=== PATIENT | female | born 1995 | race Caucasian/White ===

== ENCOUNTER 2016-08-23 18:16 | Emergency (ER) ==
[2016-08-23 18:22] VITALS: BP 117/82; TEMP 98.4; BMI 27.3
[2016-08-23] MEDS ORDERED: TORADOL IM STA (18:31)
--- NOTE | 2016-08-23 18:35 | ED.PDOC ---
General ED Provider: Dr. PRIYANKA SERRANO Chief Complaint: Hand Pain/Injury Stated Complaint: Patient puched the wall yesterday, she is hurting on 5 th finger today. hurt to move and bend Time Seen by Physician: 18:32 Mode of Arrival: Walk-In Information Source: Patient Nursing and Triage Documentation Reviewed and Agree: Yes Musculoskeletal Complaint Exam - Hand/Wrist Complaint/Exam Location of Pain: Reports: Right, Digit #5 Mechanism of Injury: Reports: Trauma Symptoms Are: Still present Onset of Pain: Reports: Immediate Initial Severity: Moderate Current Severity: Moderate Location: Reports: Discrete Character: Reports: Aching, Throbbing Alleviating: Reports: None Aggravating: Reports: Movement Associated Signs and Symptoms: Reports: Swelling. Denies: Redness, Bruising, Fever, Weakness, Numbness, Tingling Dominant Hand: Right Related Surgical History: Reports: None Hand/Wrist Findings: Present: Swelling, Abnormal contour Tenderness: Present: Metacarpal Differential Diagnoses: Closed Fracture, Sprain Review of Systems - Review Of Systems Constitutional: Reports: No symptoms Eyes: Reports: No symptoms Ears, Nose, Mouth, Throat: Reports: No symptoms Respiratory: Reports: No symptoms Cardiac: Reports: No symptoms GI: Reports: No symptoms : Reports: No symptoms Musculoskeletal: Reports: Joint pain Skin: Reports: No symptoms Neurological: Reports: No symptoms Endocrine: Reports: No symptoms Hematologic/Lymphatic: Reports: No symptoms All Other Systems: Reviewed and Negative Past Medical History - Past Medical History Previously Healthy: Yes Endocrine: Reports: None Cardiovascular: Reports: None Respiratory: Reports: Pneumonia Hematological: Reports: None Gastrointestinal: Reports: None Genitourinary: Reports: None Neuro/Psych: Reports: None Musculoskeletal: Reports: None Cancer: Reports: None Last Menstrual Period: 07/22/16 Other Pertinent Past Medical History: ovarian cyst - Surgical History General Surgical History: Reports: None - Family History Family History: Reports: Unknown - Social History Smoking Status: Current every day smoker Hx Substance Use: No Alcohol Screening: None - Immunizations Tetanus Shot up to Date: Yes Physical Exam - Physical Exam Appearance: Well-appearing, No pain distress, Well-nourished Pain Distress: Moderate Eyes: KIKI, EOMI, Conjunctiva clear ENT: Ears normal, Nose normal, Oropharynx normal Respiratory: Airway patent, Breath sounds clear, Breath sounds equal, Respirations nonlabored Cardiovascular: RRR, Pulses normal, No rub, No murmur GI/: Soft, Nontender, No masses, Bowel sounds normal, No Organomegaly Musculoskeletal: Normal strength, ROM intact, No edema, No calf tenderness Skin: Warm, Dry, Normal color Neurological: Sensation intact, Motor intact, Reflexes intact, Cranial nerves intact, Alert, Oriented Psychiatric: Affect appropriate, Mood appropriate Interpretation - Radiology Interpretation Radiology Interpretation By: ED Physician Radiology Results: Negative Critical Care Note - Critical Care Note Total Time (mins): 0 Course - Course Orders, Labs, Meds: Orders Category Date Time Status Ketorolac Tromethamine [Toradol] MEDS 08/23/16 18:31 Discontinued 30 mg IM ONCE STA HAND, RIGHT 3 VIEWS Stat RADS 08/23/16 18:31 Taken Medications Discontinued Medications Generic Name Dose Route Start Last Admin Trade Name Freq PRN Reason Stop Dose Admin Ketorolac Tromethamine 30 mg 08/23/16 18:31 08/23/16 18:39 Toradol IM 08/23/16 18:32 30 mg ONCE STA Administration Vital Signs: Temp Pulse Resp BP Pulse Ox 08/23/16 18:17 98.4 F 85 16 117/82 94 L Departure - Departure Time of Disposition: 18:53 Disposition: HOME SELF-CARE Discharge Problem: Sprain of right hand Qualifiers: Encounter type: initial encounter Qualifier Code: (S63.91XA) Sprain of unspecified part of right wrist and hand, initial encounter Instructions: Hand Sprain (ED) Condition: Stable Pt referred to PMD for follow-up: Yes Additional Instructions: F/u at [facility] in 3-4 days for further evaluation rest hot or cold pack Prescriptions: Hydrocodone/Acetaminophen [Loco 5-325 Tablet] 1 tab PO TID PRN #12 tablet PRN Reason: PAIN Allergies/Adverse Reactions: Allergies No Known Allergies Allergy (Verified 08/23/16 18:24) Home Medications: Ambulatory Orders Dextroamphetamine/Amphetamine [Adderall 20 mg Tablet] 20 mg PO DAILY 08/23/16 Hydrocodone/Acetaminophen [Loco 5-325 Tablet] 1 tab PO TID PRN #12 tablet 08/23 Disposition Discussed With: Patient
--- NOTE | 2016-08-23 21:10 | DI ---
EXAM: Right hand three-view HISTORY: Injury and pain at fifth metacarpal COMPARISON: None FINDINGS: The bones are normal. The joints are normal. No focal soft tissue abnormality. IMPERSSION: Normal examination.
== END 2016-08-23 19:05 | disposition home or self-care (01) ==
LOC: ED 18:16
DX: S63.91XA Sprain of unspecified part of right wrist and hand, initial encounter (principal); W22.8XXA Striking against or struck by other objects, initial encounter; F17.210 Nicotine dependence, cigarettes, uncomplicated
CPT/HCPCS: 96372; 99282

== ENCOUNTER 2017-02-15 23:04 | Emergency (ER) ==
[2017-02-15 23:16] VITALS: BP 136/91; TEMP 99.2; BMI 25.3
[2017-02-15] MEDS ORDERED: SODIUM CHLORIDE 1,000 ML IV STA (23:20)
[2017-02-15] MEDS ORDERED: XOPENEX 0.63 MG NEB STA (23:21)
[2017-02-15 23:54] LABS: BASOPHILS % (AUTO) 0.4 % (0.0-3.0); EOSINOPHILS # (AUTO) 0.1 K/ul (0.0-0.7); HEMATOCRIT 39.1 % (37.0-47.0); HEMOGLOBIN 13.9 g/dl (12.0-16.0); IMMATURE GRANULOCYTE % (AUTO) 0.3 % (0.0-5.0); LYMPHOCYTES # (AUTO) 4.1 K/uL (0.60-3.4); LYMPHOCYTES % (AUTO) 51.4 (10.0-50.0); MEAN CORPUSCULAR HEMOGLOBIN 31.2 pg (27.0-31.0); MEAN CORPUSCULAR HGB CONC 35.5 (31.8-35.4); MEAN CORPUSCULAR VOLUME 87.9 fl (81.0-99.0); MONOCYTES # (AUTO) 0.6 K/uL (0.4-2.0); NEUTROPHILS # (AUTO) 3.2 K/ul (2.0-6.9); NEUTROPHILS % (AUTO) 39.9; PLATELET COUNT 229 10^3/uL (140-440); RED BLOOD COUNT 4.45 10^6/ul (4.20-5.40)
[2017-02-15 23:55] LABS: ABG BASE EXCESS -2 (-2.0-2.0); ABG HCO3 20.8 (22.0-26.0); ABG PCO2 24.7 mmHg (35-45); ABG PH 7.535 (7.35-7.45); ABG TCO2 22 (22.0-28.0)
[2017-02-16 00:15] LABS: SERUM PREGNANCY INTERNAL QC INTERNAL QC VALID
[2017-02-16 00:22] LABS: ALANINE AMINOTRANSFERASE 8 U/L (12-78); ALBUMIN 3.9 g/dL (3.4-5.0); ALBUMIN/GLOBULIN RATIO 1.34; ALKALINE PHOSPHATASE 50 U/L (42-98); ASPARTATE AMINO TRANSFERASE 12 U/L (15-37); BILIRUBIN,TOTAL 0.54 mg/dL (0.00-1.20); BLOOD UREA NITROGEN 7 mg/dL (7-18); BUN/CREATININE RATIO 8.86; CALCIUM 9.4 mg/dL (8.2-10.2); CARBON DIOXIDE 23 mmol/L (21-32); CHLORIDE 109 mmol/L (98-107); CREATINE KINASE 72 U/L; CREATININE 0.79 mg/dL (0.60-1.30); GLUCOSE 105 mg/dL (70-110); SODIUM 142 mmol/L (136-145); TOTAL PROTEIN 6.8 g/dL (6.4-8.2)
[2017-02-16 00:33] LABS: ERYTHROCYTE SEDIMENTATION RATE 2 mm/hr (0-20); ESR INTERNAL QC INTERNAL QC VALID
--- NOTE | 2017-02-16 01:05 | CT ---
EXAM: CT angiogram chest with intravenous contrast 02/16/2017. Multi planar reformatted images obta ined. MIP images provided HISTORY: Dyspnea COMPARISON: 12/19/2015 FINDINGS: The heart size appears within normal limits. There is no pericardial effusion. The thoracic aorta shows no acute process. There are no pulmonary arterial filling defects to suggest pulmonary embolus. There is no pulmonary consolidation. No pleural effusion or pneumothorax. Scattered benign postinflammatory calcifications. Limited views of the upper abdomen show no acute process. No acute osseous abnormality. IMPRESSION: 1. No evidence pulmonary embolus. 2. No acute cardiopulmonary process.
[2017-02-16] MEDS: K-DUR PO STA ×2 (01:14→01:21)
[2017-02-16] MEDS ORDERED: POTASSIUM CHLORIDE 20 MEQ VIAL-ADDITIVE ONLY 20 MEQ in SODIUM CHLORIDE 100 ML IV STA ×2 (01:19→01:20)
[2017-02-16 01:28] LABS: ADD URINE MICROSCOPIC YES; BILIRUBIN,URINE Negative (NEGATIVE); KETONES,URINE Negative (NEGATIVE); LEUKOCYTE ESTERASE ,URINE 1+ (NEGATIVE); NITRITE,URINE Negative (NEGATIVE); PH,URINE 8.5 (5-9); PROTEIN,URINE Negative (NEGATIVE); URINE, BLOOD Trace-lysed (NEGATIVE)
--- NOTE | 2017-02-16 01:28 | ED.PDOC ---
General ED Provider: Dr. TRI REAGAN-ER Chief Complaint: Non-specific Complaint Stated Complaint: im sob and weak Time Seen by Physician: 23:10 Mode of Arrival: Walk-In Information Source: Patient Exam Limitations: No limitations Nursing and Triage Documentation Reviewed and Agree: Yes Respiratory Complaint Exam - Shortness of Air Complaint/Exam Onset/Duration: one hour Symptoms Are: Still present Timing: Constant Initial Severity: Mild Current Severity: Mild Aggravating: Reports: None Alleviating: Reports: None Associated Signs and Symptoms: Denies: Cough, Wheezing, Chest pain with cough, Chest pain, Fever, Chills, Diaphoresis, Nasal congestion, Dizziness, Calf pain, Calf swelling, Edema, Rapid breathing, Labored breathing, Decreased intake History of Healthcare-Acquired Pneumonia: No Pulmonary Embolism Risk Factors: Reports: None Cardiac Risk Factors: Reports: None Tuberculosis Risk Factors: Reports: None Home Oxygen Use: No Recent Stress Test: No Recent Echo/LV Function: No Respiratory Distress: None Stridor Present: No Tracheal Deviation: No Subcutaneous Emphysema: No Accessory Muscle Use: No Retractions: Not Present Diminished Breath Sounds: No Prolonged Expiratory Phase: No Unable to Speak Full Sentences: No Fatigue: No Leg Swelling: No Sandi's Sign Present: No Grunting Respirations: No Kussmaul Respirations: No Differential Diagnoses: Asthma, Pulmonary Edema, Pneumonia, Pneumothorax, Pulmonary Embolism Quality Indicator For Non-Traumatic Chest Pain/Syncope: EKG Performed Review of Systems - Review Of Systems Constitutional: Reports: No symptoms, Weakness Eyes: Reports: No symptoms Ears, Nose, Mouth, Throat: Reports: No symptoms Respiratory: Reports: Short of air Cardiac: Reports: No symptoms GI: Reports: No symptoms : Reports: No symptoms Musculoskeletal: Reports: No symptoms Skin: Reports: No symptoms Neurological: Reports: No symptoms Endocrine: Reports: No symptoms Hematologic/Lymphatic: Reports: No symptoms All Other Systems: Reviewed and Negative Past Medical History - Past Medical History Previously Healthy: Yes Endocrine: Reports: None Cardiovascular: Reports: None Respiratory: Reports: Pneumonia Hematological: Reports: None Gastrointestinal: Reports: None Genitourinary: Reports: None Neuro/Psych: Reports: None Musculoskeletal: Reports: None Cancer: Reports: None Last Menstrual Period: 3 days ago Other Pertinent Past Medical History: ovarian cyst - Surgical History General Surgical History: Reports: None - Family History Family History: Reports: Unknown - Social History Smoking Status: Current every day smoker Hx Substance Use: No Alcohol Screening: None Lives: With family - Immunizations Tetanus Shot up to Date: Yes Physical Exam - Physical Exam Appearance: Well-appearing, No pain distress, Well-nourished Eyes: KIKI, EOMI, Conjunctiva clear ENT: Ears normal Neck: Supple Respiratory: Airway patent, Breath sounds clear, Breath sounds equal, Respirations nonlabored Cardiovascular: RRR, Pulses normal, No rub, No murmur GI/: Soft Musculoskeletal: Normal strength, ROM intact, No edema, No calf tenderness Skin: Warm Neurological: Sensation intact Psychiatric: Affect appropriate, Mood appropriate, Anxious Interpretation - Radiology Interpretation Radiology Interpretation By: Radiologist Radiology Results: Negative Exam Interpreted: CT Scan - EKG Interpretation Time of EKG #1: 01:28 Rate: Normal Rhythm: Sinus Ectopy: None [place]: NL ST Segment: Normal Re-Evaluation - Re-Evaluation Time of Re-Evaluation: 03:54 Status: Improved Vital Signs Stable: Yes Pain Level: 0 Appearance: NAD Lungs: Clear Skin: Warm and Dry Neuro: Alert and Oriented X3 CV: RRR Critical Care Note - Critical Care Note Total Time (mins): 0 Course - Course Hematology/Chemistry: 02/15/17 23:34 02/16/17 03:30 Orders, Labs, Meds: Lab Review 02/15/17 02/15/17 02/15/17 23:19 23:34 23:34 WBC 7.90 RBC 4.45 Hgb 13.9 Hct 39.1 MCV 87.9 MCH 31.2 H MCHC 35.5 H RDW Coeff of Garth 13.1 Plt Count 229 Immature Gran % (Auto) 0.3 Neut % (Auto) 39.9 Lymph % (Auto) 51.4 H [place] % (Auto) 7.0 Eos % (Auto) 1.0 Baso % (Auto) 0.4 Immature Gran # (Auto) 0.0 Neut # 3.2 Lymph # 4.1 H [place] # 0.6 Eos # 0.1 Baso # 0.0 ESR 2 Puncture Site Rb O2 Saturation 98.0 ABG pH 7.535 H* ABG pCO2 24.7 L ABG pO2 98.0 ABG HCO3 20.8 L ABG Total CO2 22 ABG Base Excess -2 Iglesia Test + FiO2 % 21.0 Sodium 142 Potassium 3.0 L Chloride 109 H Carbon Dioxide 23 Anion Gap 13.0 BUN 7 Creatinine 0.79 Estimated GFR (MDRD) 93.00 BUN/Creatinine Ratio 8.86 Glucose 105 Calcium 9.4 Total Bilirubin 0.54 AST 12 L ALT 8 L Alkaline Phosphatase 50 Total Creatine Kinase 72 Troponin I < 0.0100 B-Natriuretic Peptide Total Protein 6.8 Albumin 3.9 Globulin 2.9 Albumin/Globulin Ratio 1.34 Serum , Qual Urine Color Urine Clarity Urine pH Ur Specific [place] Urine Protein Urine Glucose (UA) Urine Ketones Urine Blood Urine Nitrite Urine Bilirubin Urine Urobilinogen Ur Leukocyte Esterase Urine Microscopic WBC Ur Squamous Epith Cells Urine Bacteria Urine Opiates Screen Ur Oxycodone Screen Urine Methadone Screen Ur Propoxyphene Screen Ur Barbiturates Screen U Tricyclic Antidepress Ur Phencyclidine Scrn Ur Amphetamine Screen U Methamphetamines Scrn U Benzodiazepines Scrn Urine Cocaine Screen U Cannabinoids Screen 02/15/17 02/15/17 02/16/17 23:34 23:34 00:50 WBC RBC Hgb Hct MCV MCH MCHC RDW Coeff of Garth Plt Count Immature Gran % (Auto) Neut % (Auto) Lymph % (Auto) [place] % (Auto) Eos % (Auto) Baso % (Auto) Immature Gran # (Auto) Neut # Lymph # [place] # Eos # Baso # ESR Puncture Site O2 Saturation ABG pH ABG pCO2 ABG pO2 ABG HCO3 ABG Total CO2 ABG Base Excess Ig[place]ia Test FiO2 % Sodium Potassium Chloride Carbon Dioxide Anion Gap BUN Creatinine Estimated GFR (MDRD) BUN/Creatinine Ratio Glucose Calcium Total Bilirubin AST ALT Alkaline Phosphatase Total Creatine Kinase Troponin I B-Natriuretic Peptide 13 Total Protein Albumin Globulin Albumin/Globulin Ratio Serum , Qual Negative Urine Color Urine Clarity Urine pH Ur Specific [place] Urine Protein Urine Glucose (UA) Urine Ketones Urine Blood Urine Nitrite Urine Bilirubin Urine Urobilinogen Ur Leukocyte Esterase Urine Microscopic WBC Ur Squamous Epith Cells Urine Bacteria Urine Opiates Screen Negative Ur Oxycodone Screen Negative Urine Methadone Screen Negative Ur Propoxyphene Screen Negative Ur Barbiturates Screen Negative U Tricyclic Antidepress Positive Ur Phencyclidine Scrn Negative Ur Amphetamine Screen Positive U Methamphetamines Scrn Negative U Benzodiazepines Scrn Negative Urine Cocaine Screen Negative U Cannabinoids Screen Negative 02/16/17 02/16/17 00:50 03:30 WBC RBC Hgb Hct MCV MCH MCHC RDW Coeff of Garth Plt Count Immature Gran % (Auto) Neut % (Auto) Lymph % (Auto) [place] % (Auto) Eos % (Auto) Baso % (Auto) Immature Gran # (Auto) Neut # Lymph # [place] # Eos # Baso # ESR Puncture Site O2 Saturation ABG pH ABG pCO2 ABG pO2 ABG HCO3 ABG Total CO2 ABG Base Excess Iglesia Test FiO2 % Sodium Potassium 3.5 Chloride Carbon Dioxide Anion Gap BUN Creatinine Estimated GFR (MDRD) BUN/Creatinine Ratio Glucose Calcium Total Bilirubin AST ALT Alkaline Phosphatase Total Creatine Kinase Troponin I B-Natriuretic Peptide Total Protein Albumin Globulin Albumin/Globulin Ratio Serum , Qual Urine Color Light Urine Clarity Slightly Urine pH 8.5 Ur Specific [place] 1.015 Urine Protein Negative Urine Glucose (UA) Negative Urine Ketones Negative Urine Blood Trace-lysed Urine Nitrite Negative Urine Bilirubin Negative Urine Urobilinogen 0.2 Ur Leukocyte Esterase 1+ Urine Microscopic WBC 10-20 Ur Squamous Epith Cells 20-30 Urine Bacteria 1+ Urine Opiates Screen Ur Oxycodone Screen Urine Methadone Screen Ur Propoxyphene Screen Ur Barbiturates Screen U Tricyclic Antidepress Ur Phencyclidine Scrn Ur Amphetamine Screen U Methamphetamines Scrn U Benzodiazepines Scrn Urine Cocaine Screen U Cannabinoids Screen Orders Category Date Time Status ABG DRAW REQUEST Stat CARDIO 02/15/17 23:19 Completed EKG-(ED ONLY) Stat CARDIO 02/15/17 23:19 Completed NEBULIZER TREATMENT Stat CARDIO 02/15/17 23:21 Completed NPO REMINDER: IMAGING ONCE CARE 02/15/17 23:20 Completed Property Utilization Manager [ED WIPER BLENDER APPLIED] .ONCE EMERGENCY 02/15/17 23:25 Active IV [ED IV/MEDIPORT/POWERPORT] .ONCE EMERGENCY 02/15/17 23:19 Active ABG Stat LAB 02/15/17 23:19 Completed BNP [B-TYPE NATRIURETIC PEPTIDE] Stat LAB 02/15/17 23:34 Completed CBC W/ AUTO DIFF Stat LAB 02/15/17 23:34 Completed COMPREHENSIVE METABOLIC PANEL Stat LAB 02/15/17 23:34 Completed CREATINE KINASE Stat LAB 02/15/17 23:34 Completed ESR Stat LAB 02/15/17 23:34 Completed POTASSIUM Stat LAB 02/16/17 03:30 Completed SERUM Stat LAB 02/15/17 23:34 Completed TROPONIN I Stat LAB 02/15/17 23:34 Completed URINALYSIS C & S IF INDICATED Stat LAB 02/15/17 23:19 Completed URINE CULTURE Stat LAB 02/16/17 01:35 Received URINE DRUG SCREEN (RAPID FOR ED) [DRUG SCREEN, URINE, LAB 02/15/17 23:21 Completed RAPID] Stat 0.9 % Sodium Chloride [Saline Flush] MEDS 02/15/17 23:19 Ordered 1 syr IVF PRN PRN Levalbuterol HCl [Xopenex 0.63 mg] MEDS 02/15/17 23:21 Discontinued 1 vial NEB ONCE STA Morphine Sulfate [Morphine 2 mg/ml Syringe] MEDS 02/16/17 01:35 Discontinued 2 mg IVP NOW STA Ondansetron HCl/Pf [Zofran 4 mg/2 ml] MEDS 02/16/17 01:35 Discontinued 4 mg IVP ONCE STA Potassium Chloride Additive [Potassium Chloride 20 Meq MEDS 02/16/17 01:44 Discontinued Vial-Additive Only] 20 meq IV .STK-MED ONE Potassium Chloride Additive [Potassium Chloride 20 Meq MEDS 02/16/17 01:19 Discontinued Vial-Additive Only] 20 meq 0.9 % Sodium Chloride [Sodium Chloride] 100 ml IV ONCE Potassium Chloride Additive [Potassium Chloride 20 Meq MEDS 02/16/17 01:20 Discontinued Vial-Additive Only] 20 meq 0.9 % Sodium Chloride [Sodium Chloride] 100 ml IV ONCE Potassium Chloride [K-Dur] MEDS 02/16/17 01:09 Discontinued 40 meq PO ONCE STA Potassium Chloride [K-Dur] MEDS 02/16/17 02:09 Discontinued 40 meq PO ONCE STA Sodium Chloride 0.9% [Sodium Chloride] 1,000 ml MEDS 02/15/17 23:20 Active IV 100 mls/hr CT CHEST PE PROTOCOL Stat RADS 02/16/17 00:27 Completed Medications Generic Name Dose Route Start Last Admin Trade Name Freq PRN Reason Stop Dose Admin Sodium Chloride 1,000 mls @ 100 mls/hr 02/15/17 23:20 02/16/17 00:18 Sodium Chloride IV 02/16/17 09:19 100 mls/hr .Q10H STA Administration Sodium Chloride 1 syr 02/15/17 23:19 02/16/17 00:18 Saline Flush IVF 1 syr PRN PRN Administration To flush IV Discontinued Medications Generic Name Dose Route Start Last Admin Trade Name Freq PRN Reason Stop Dose Admin Potassium Chloride 20 meq/ 110 mls @ 50 mls/hr 02/16/17 01:19 02/16/17 03:51 Sodium Chloride IV 02/16/17 03:30 Not Given ONCE STA Potassium Chloride 20 meq/ 110 mls @ 50 mls/hr 02/16/17 01:20 02/16/17 03:51 Sodium Chloride IV 02/16/17 03:31 Not Given ONCE STA Levalbuterol HCl 1 vial 02/15/17 23:21 02/15/17 23:52 Xopenex 0.63 Mg NEB 02/15/17 23:22 1 vial ONCE STA Administration Morphine Sulfate 2 mg 02/16/17 01:35 02/16/17 02:10 Morphine 2 Mg/Ml Syringe IVP 02/16/17 01:36 2 mg NOW STA Administration Ondansetron HCl 4 mg 02/16/17 01:35 02/16/17 02:11 Zofran 4 Mg/2 Ml IVP 02/16/17 01:36 4 mg ONCE STA Administration Potassium Chloride 40 meq 02/16/17 01:09 02/16/17 01:21 K-Dur PO 02/16/17 01:10 Not Given ONCE STA Potassium Chloride 40 meq 02/16/17 02:09 02/16/17 02:20 K-Dur PO 02/16/17 02:10 40 meq ONCE STA Administration Vital Signs: Temp Pulse Resp BP Pulse Ox 02/15/17 23:05 99.2 F 88 20 136/91 H 100 Departure - Departure Time of Disposition: 03:54 Disposition: HOME SELF-CARE Discharge Problem: Hypokalemia Instructions: Hypokalemia (ED) Condition: Good Pt referred to PMD for follow-up: Yes Additional Instructions: recheck potassium with your pcp[ this week Allergies/Adverse Reactions: Allergies No Known Allergies Allergy (Verified 02/15/17 23:13) Home Medications: Ambulatory Orders Dextroamphetamine/Amphetamine [Adderall 20 mg Tablet] 20 mg PO DAILY 08/23/16 Disposition Discussed With: Patient, Family
[2017-02-16 01:31] LABS: BACTERIA,URINE 1+ (NOT PRESENT)
[2017-02-16] MEDS ORDERED: MORPHINE 2 MG/ML SYRINGE IVP STA (01:35)
[2017-02-16] MEDS ORDERED: ZOFRAN 4 MG/2 ML IVP STA (01:35)
[2017-02-16 01:37] LABS: COCAIN SCREEN,URINE NEGATIVE (NEGATIVE)
[2017-02-16] MEDS ORDERED: POTASSIUM CHLORIDE 20 MEQ VIAL-ADDITIVE ONLY IV ONE (01:44)
[2017-02-16] MEDS ORDERED: K-DUR PO STA (02:09)
== END 2017-02-16 04:00 | disposition home or self-care (01) ==
LOC: ED 23:04
DX: E87.6 Hypokalemia (principal); R06.02 Shortness of breath; R53.1 Weakness; F17.210 Nicotine dependence, cigarettes, uncomplicated
CPT/HCPCS: 36415; 80053; 80306; 81001; 82550; 82803; 83880; 84132; 84484; 84703; 85025; 85651; 87086; 93005; 93010; 94640; 96361; 96374; 96375; 99283

== ENCOUNTER 2017-02-19 16:45 | Outpatient (CLI) ==
--- NOTE | 2017-02-20 05:59 | CT ---
EXAM: CT chest without contrast HISTORY: Chest pain COMPARISON: CT PE study 02/16/[address] chest 12/19/2015 TECHNIQUE: Serial axial images of the chest were obtained from the lung apices to the upper abdomen without contrast. These were viewed in multiple planes. FINDINGS: The thyroid is normal. The visualized vessels are unremarkable without aneurysm or stenos is. The heart is normal in size without pericardial effusion. There are no pathologically enlarged mediastinal or hilar lymph nodes. Mediastinal and hilar calcified lymph nodes are present. There is no axillary lymphadenopathy. There is no pneumothorax or pleural effusion. Right upper lobe calcified granuloma is unchanged. Th ere is no consolidation, nodule or mass. The airways are patent. The osseous structures are normal. Limited views in the upper abdomen are unchanged with prior cholecystectomy. IMPRESSION: 1. No acute cardiopulmonary process or consolidation. There has been no significant interval change . 2. Sequela of old granulomatous disease.
== END 2017-02-19 16:46 | disposition home or self-care (01) ==
LOC: RAD 16:45
PROVIDERS: ATTEND Emergency Medicine
DX: R07.9 Chest pain, unspecified (principal)

== ENCOUNTER 2017-03-04 13:29 | Outpatient (CLI) ==
[2017-03-04 14:05] LABS: SERUM PREGNANCY INTERNAL QC INTERNAL QC VALID
== END 2017-03-04 13:30 | disposition home or self-care (01) ==
LOC: LAB 13:29
PROVIDERS: ATTEND Nurse Practitioner Family
DX: N92.6 Irregular menstruation, unspecified (principal)
CPT/HCPCS: 36415; 84703

== ENCOUNTER 2018-06-06 19:40 | Emergency (ER) ==
[2018-06-06] MEDS ORDERED: MOTRIN PO STA (19:50)
[2018-06-06 19:51] VITALS: BP 153/86; TEMP 98.7; BMI 30.6
--- NOTE | 2018-06-06 20:06 | ED.PDOC ---
General ED Provider: Dr. DARREN PERDOMO Chief Complaint: Finger Pain/Injury Stated Complaint: one week history of left ring finger injury while trying to get toy box through door. sustained contusion and has been having difficulty flexing it. She splinted it but it still hurts. Time Seen by Physician: 19:45 Mode of Arrival: Walk-In Information Source: Patient Exam Limitations: No limitations Primary Care Provider: BEATRIS WYNN Nursing and Triage Documentation Reviewed and Agree: Yes Does patient meet sepsis criteria?: No System Inflammatory Response Syndrome: Not Applicable Sepsis Protocol: For patient's 13 years and over: Temp is 96.8 and below OR 101 and greater Pulse >90 BPM Resp >20/minute Acutely Altered Mental Status Are patient's symptoms suggestive of a new infection, such as: -Pneumonia -Skin, Soft Tissue -Endocarditis -UTI -Bone, Joint Infection -Implantable Device -Acute Abdominal Infection -Wound Infection -Meningitis -Blood Stream Catheter Infection -Unknown Review of Systems - Review Of Systems Constitutional: Reports: No symptoms Eyes: Reports: No symptoms Ears, Nose, Mouth, Throat: Reports: No symptoms Respiratory: Reports: No symptoms Cardiac: Reports: No symptoms GI: Reports: No symptoms : Reports: No symptoms Musculoskeletal: Reports: Joint pain (Left ring finger limited range of motion and contusion. ) Skin: Reports: No symptoms Neurological: Reports: Anxiety Endocrine: Reports: No symptoms Hematologic/Lymphatic: Reports: No symptoms All Other Systems: Reviewed and Negative Past Medical History - Past Medical History Previously Healthy: Yes Endocrine: Reports: None Cardiovascular: Reports: None Respiratory: Reports: Pneumonia Hematological: Reports: None Gastrointestinal: Reports: None Genitourinary: Reports: None Neuro/Psych: Reports: None Musculoskeletal: Reports: None Cancer: Reports: None Last Menstrual Period: depo shot Other Pertinent Past Medical History: ovarian cyst - Surgical History General Surgical History: Reports: None - Family History Family History: Reports: Unknown - Social History Smoking Status: Current every day smoker, Light tobacco smoker Hx Substance Use: No Alcohol Screening: None Physical Exam - Physical Exam Appearance: Well-appearing Ill-appearing: None Pain Distress: Severe Neck: Supple Respiratory: Airway patent, Breath sounds clear, Breath sounds equal, Respirations nonlabored Cardiovascular: RRR, Pulses normal, No rub, No murmur Musculoskeletal: Limited ROM Neurological: Alert, Oriented Psychiatric: Anxious Critical Care Note - Critical Care Note Total Time (mins): 0 Course - Course Orders, Labs, Meds: Orders Category Date Time Status Ibuprofen [Motrin] MEDS 06/06/18 19:50 Discontinued 800 mg PO ONCE STA FINGER(S), LEFT MIN 2V Stat RADS 06/06/18 19:51 Taken Medications Discontinued Medications Generic Name Dose Route Start Last Admin Trade Name Freq PRN Reason Stop Dose Admin Ibuprofen 800 mg 06/06/18 19:50 06/06/18 19:54 Motrin PO 06/06/18 19:51 800 mg ONCE STA Administration Vital Signs: Temp Pulse Resp BP Pulse Ox 06/06/18 19:42 98.7 F 89 18 153/86 H 100 Departure - Departure Time of Disposition: 20:09 Disposition: HOME SELF-CARE Discharge Problem: Pain in finger Instructions: Jammed Finger (ED) Condition: Stable Pt referred to PMD for follow-up: Yes IPMP verified?: Yes Additional Instructions: Take Motrin as needed for pain Follow up with PCP in 3 days Prescriptions: Ibuprofen [Motrin] 600 mg PO Q6H PRN #30 tablet PRN Reason: Analgesia Allergies/Adverse Reactions: Allergies No Known Allergies Allergy (Verified 06/06/18 19:55) Home Medications: Ambulatory Orders Dextroamphetamine/Amphetamine [Adderall 20 mg Tablet] 20 mg PO DAILY 08/23/16 Ibuprofen [Motrin] 600 mg PO Q6H PRN #30 tablet 06/06/18 Disposition Discussed With: Patient
--- NOTE | 2018-06-07 10:28 | DI ---
EXAM: The left finger fourth digit three-view HISTORY: Left ring finger injury COMPARISON: None FINDINGS: The bones are normal. The joints are normal. No focal soft tissue abnormality. IMPERSSION: Normal examination.
== END 2018-06-06 20:22 | disposition home or self-care (01) ==
LOC: ED 19:40
DX: S69.92XA Unspecified injury of left wrist, hand and finger(s), initial encounter (principal); W22.8XXA Striking against or struck by other objects, initial encounter; F17.210 Nicotine dependence, cigarettes, uncomplicated
CPT/HCPCS: 99282

== ENCOUNTER 2018-06-29 17:12 | Emergency (ER) ==
[2018-06-29 17:15] VITALS: BP 146/89; TEMP 98.1; BMI 30.5
--- NOTE | 2018-06-29 17:36 | ED.PDOC ---
General ED Provider: Dr. TRI VAUGHAN Chief Complaint: Sore Throat Stated Complaint: Sore Throat and heart burn. States started off feeling like heartburn and was nauseated, now has sore throat, productive cough with green phlegm Time Seen by Physician: 17:35 Mode of Arrival: Walk-In Information Source: Patient Exam Limitations: No limitations Primary Care Provider: BEATRIS WYNN Nursing and Triage Documentation Reviewed and Agree: Yes Does patient meet sepsis criteria?: No System Inflammatory Response Syndrome: Not Applicable Sepsis Protocol: For patient's 13 years and over: Temp is 96.8 and below OR 101 and greater Pulse >90 BPM Resp >20/minute Acutely Altered Mental Status Are patient's symptoms suggestive of a new infection, such as: -Pneumonia -Skin, Soft Tissue -Endocarditis -UTI -Bone, Joint Infection -Implantable Device -Acute Abdominal Infection -Wound Infection -Meningitis -Blood Stream Catheter Infection -Unknown EENT Complaint Exam - Throat Complaint/Exam Onset/Duration: 3 days Symptoms Are: Still present Timimg: Constant Initial Severity: Moderate Current Severity: Moderate Aggravating: Reports: Eating Alleviating: Reports: None Associated Signs and Symptoms: Reports: Dysphagia (lt cervical lymph gland soreness and swelling in sub mandibular and tonsils), Hoarseness, Nasal congestion Uvula Midline: Yes Jessa-tonsillar Fluctuence: No Scarlatinaform Rash Present: No Lesions: Present: Pharynx. Absent: Lip Exanthem: Absent: Pharynx Vesicles: Present: Pharynx. Absent: Lip Stridor Present: No Sinus Tenderness Present: No Tonsillar Hypertrophy Present: No Tonsillar Exudate Present: No Jessa-tonsillar Swelling Present: No Adenopathy Present: Yes Splenomegaly Present: No Differential Diagnoses: Pharyngitis, Tonsillitis Review of Systems - Review Of Systems Constitutional: Reports: No symptoms Eyes: Reports: No symptoms Ears, Nose, Mouth, Throat: Reports: Throat pain Respiratory: Reports: Cough Cardiac: Reports: No symptoms GI: Reports: No symptoms : Reports: No symptoms Musculoskeletal: Reports: No symptoms Skin: Reports: No symptoms Neurological: Reports: No symptoms Endocrine: Reports: No symptoms Hematologic/Lymphatic: Reports: No symptoms All Other Systems: Reviewed and Negative Past Medical History - Past Medical History Previously Healthy: Yes Endocrine: Reports: None Cardiovascular: Reports: None Respiratory: Reports: Pneumonia Hematological: Reports: None Gastrointestinal: Reports: None Genitourinary: Reports: None Neuro/Psych: Reports: None Musculoskeletal: Reports: None Cancer: Reports: None Last Menstrual Period: depo shot Other Pertinent Past Medical History: ovarian cyst - Surgical History General Surgical History: Reports: None - Family History Family History: Reports: Unknown - Social History Smoking Status: Current every day smoker Hx Substance Use: No Alcohol Screening: None Physical Exam - Physical Exam Appearance: Well-appearing, No pain distress, Well-nourished, Thin Ill-appearing: None Pain Distress: Mild Eyes: KIKI, EOMI, Conjunctiva clear ENT: Ears normal, Nose normal, Erythema Neck: Supple (Tender lt cervical region laterally) Respiratory: Airway patent, Breath sounds clear, Breath sounds equal, Respirations nonlabored Cardiovascular: RRR, Pulses normal, No rub, No murmur GI/: Soft, Nontender, No masses, Bowel sounds normal, No Organomegaly Musculoskeletal: Normal strength, ROM intact, No edema, No calf tenderness Skin: Warm, Dry, Normal color Neurological: Sensation intact, Motor intact, Reflexes intact, Cranial nerves intact, Alert, Oriented Psychiatric: Affect appropriate, Mood appropriate Re-Evaluation - Re-Evaluation Time of Re-Evaluation: 18:50 Status: Improved Vital Signs Stable: Yes Appearance: NAD Lungs: Clear Skin: Warm and Dry Neuro: Alert and Oriented X3 CV: RRR Critical Care Note - Critical Care Note Total Time (mins): 60 Course - Course Hematology/Chemistry: 06/29/18 18:03 06/29/18 18:03 Vital Signs: Temp Pulse Resp BP Pulse Ox 06/29/18 17:12 98.1 F 84 18 146/89 H 99 Departure - Departure Time of Disposition: 18:55 Disposition: HOME SELF-CARE Discharge Problem: Acute pharyngitis Instructions: Pharyngitis (ED), Adenitis (ED) Condition: Good Pt referred to PMD for follow-up: Yes (1 wk or earlier if needed) IPMP verified?: No Additional Instructions: Gargle with warm salt water 4 times daily Take meds as directed Prescriptions: Azithromycin [Zithromax] 250 mg PO DAILY #6 tablet Allergies/Adverse Reactions: Allergies No Known Allergies Allergy (Verified 06/29/18 17:15) Home Medications: Ambulatory Orders Dextroamphetamine/Amphetamine [Adderall 20 mg Tablet] 20 mg PO DAILY 08/23/16 Ibuprofen [Motrin] 600 mg PO Q6H PRN #30 tablet 06/06/18 Azithromycin [Zithromax] 250 mg PO DAILY #6 tablet 06/29/18 Disposition Discussed With: Patient
[2018-06-29 17:54] LABS: URINE PREGNANCY TEST NEGATIVE (NEGATIVE)
--- NOTE | 2018-06-29 18:51 | DI ---
EXAM: Two views of the chest. History: Cough. Comparison: Chest CT 02/19/2017, chest radiograph 11/21/2013 Findings: Heart size is normal. No focal consolidation. No appreciable pleural fluid and no pneumo thorax. No acute osseous abnormalities. Impression: No acute cardiopulmonary process
[2018-06-29] MEDS ORDERED: TORADOL PO STA (18:53)
--- NOTE | 2018-06-29 18:53 | DI ---
EXAM: Two views of the soft tissue neck. History: Sore throat and left-sided neck pain. Findings: No acute fracture or subluxation of the cervical spine. Disc space heights are preserved. No prevertebral soft tissue swelling. Epiglottis is not thickened. Impression: No acute radiographic findings
== END 2018-06-29 19:05 | disposition home or self-care (01) ==
LOC: ED 17:12
DX: J02.9 Acute pharyngitis, unspecified (principal); F17.210 Nicotine dependence, cigarettes, uncomplicated
CPT/HCPCS: 36415; 80053; 81001; 81025; 85025; 86308; 87502; 87651; 99283

== ENCOUNTER 2018-09-08 09:49 | Outpatient (CLI) ==
--- NOTE | 2018-09-08 10:58 | CT ---
EXAM: CT Head HISTORY: Headache COMPARISON: None TECHNIQUE: CT head performed without contrast FINDINGS: There is no mass effect, midline shift, or intracranial hemmorhage. Rojas white differenti ation is preserved. There is no extra-axial collection. The ventricles, sulci, and basal cisterns a re patent and symmetric. There is no depressed calvarial fracture. The mastoid air cells are clear. The visualized paranasal sinuses are clear. IMPRESSION: No acute intracranial abnormality.
== END 2018-09-08 09:50 | disposition home or self-care (01) ==
LOC: RAD 09:49
PROVIDERS: ATTEND Nurse Practitioner Family
DX: R51 Headache (principal)